=== PATIENT | male | born 1975 | race Caucasian/White ===

== ENCOUNTER 2017-07-07 10:54 | Emergency (ER) | payer SELFPAY ==
[2017-07-07] MEDS: CEFTRIAXONE 250 MG INJ IM (12:07)
[2017-07-07] MEDS: AZITHROMYCIN 250 MG TAB PO (12:08)
[2017-07-07 22:17] LABS: RAPID PLASMA REAGIN NONREACTIVE (NR)
== END 2017-07-07 13:25 | disposition home or self-care (01) ==
LOC: FTE 10:54
DX: A64 Unspecified sexually transmitted disease (principal); K12.0 Recurrent oral aphthae; A60.02 Herpesviral infection of other male genital organs; I10 Essential (primary) hypertension
CPT/HCPCS: 36415; 86592; 87591; 96372; 99284-25

== ENCOUNTER 2017-10-03 11:50 | Emergency (ER) | payer SELFPAY ==
[2017-10-03 13:05] LABS: ADD UMIC NO; UR ASCORBIC ACID NEGATIVE (NEGATIVE); UR BILIRUBIN (Dip) NEGATIVE (NEGATIVE); UR BLOOD (Dip) NEGATIVE (NEGATIVE); UR CLARITY CLEAR (CLEAR); UR COLOR YELLOW (YELLOW); UR GLUCOSE (Dip) NEGATIVE (NEGATIVE); UR KETONES (Dip) NEGATIVE (NEGATIVE); UR LEUKOCYTE ESTERASE (Dip) NEGATIVE Leu/ul (NEGATIVE); UR NITRITE (Dip) NEGATIVE (NEGATIVE); UR SPECIFIC GRAVITY (Dip) 1.018 (1.003-1.030); UR TOTAL PROTEIN (Dip) NEGATIVE (NEGATIVE); UR UROBILINOGEN (Dip) NEGATIVE (NEGATIVE)
== END 2017-10-03 14:37 | disposition home or self-care (01) ==
LOC: FTE 11:50
DX: A60.02 Herpesviral infection of other male genital organs (principal); N50.89 Other specified disorders of the male genital organs; I10 Essential (primary) hypertension; F17.210 Nicotine dependence, cigarettes, uncomplicated
CPT/HCPCS: 76870; 81003; 87591; 99284-25

== ENCOUNTER 2017-10-07 11:16 | Emergency (ER) | payer MEDICAID ==
[2017-10-07] MEDS: ACETAMINOPHEN 500 MG TAB PO (12:22)
[2017-10-07] MEDS: IBUPROFEN 600 MG TAB PO (12:22)
== END 2017-10-07 13:04 | disposition home or self-care (01) ==
LOC: FTE 11:16
DX: J02.0 Streptococcal pharyngitis (principal); I10 Essential (primary) hypertension; F17.210 Nicotine dependence, cigarettes, uncomplicated
CPT/HCPCS: 99283; Z7502

== ENCOUNTER 2017-10-12 14:19 | Emergency (ER) | payer MEDICAID ==
[2017-10-12] MEDS: ACYCLOVIR 800 MG TAB PO (15:17)
[2017-10-12 16:37] LABS: HIV 1&2 ANTIBODY NEGATIVE (NEGATIVE)
[2017-10-12 18:21] LABS: URINE BLOOD (Dip) POC Negative (NEGATIVE); URINE GLUCOSE (Dip) POC Negative (NEGATIVE); URINE KETONES (Dip) POC Negative (NEGATIVE); URINE LEUKOCYTE EST (Dip) POC Negative (NEGATIVE); URINE NITRITE (Dip) POC Negative (NEGATIVE); URINE TOTAL PROTEIN POC Negative (NEGATIVE)
== END 2017-10-12 19:21 | disposition home or self-care (01) ==
LOC: FTE 14:19
DX: B00.9 Herpesviral infection, unspecified (principal); R33.9 Retention of urine, unspecified; I10 Essential (primary) hypertension; R40.2412 Glasgow coma scale score 13-15, at arrival to emergency department; Z87.891 Personal history of nicotine dependence
CPT/HCPCS: 81003; 86703; 87086; 99283-25